=== PATIENT | female | born 1945 | race Caucasian/White ===

== ENCOUNTER 2016-08-08 17:28 | Emergency (ER) | payer MEDICARE ==
[~2016-08-08 17:28] MED LIST: ASA5GR PO; CALTRA600D PO; CELEBREX2 PO; ESTRACE1 MG PO; NORV5 PO; PRILOSEC40 MG PO; SUCR PO; VITAMIN D31000 UNIT PO; VITE1000 PO
== END 2016-08-08 17:35 | disposition home or self-care (01) ==
LOC: ER 17:28
DX: S05.11XA Contusion of eyeball and orbital tissues, right eye, initial encounter (principal); S00.83XA Contusion of other part of head, initial encounter; I10 Essential (primary) hypertension; Z79.82 Long term (current) use of aspirin; Z79.899 Other long term (current) drug therapy; W19.XXXA Unspecified fall, initial encounter
CPT/HCPCS: 70450; 99283